=== PATIENT | female | born 1995 | race Two or more races ===

== ENCOUNTER 2018-01-25 00:15 | Emergency (ER) | payer MEDICAID ==
[~2018-01-25] VITALS: Ht 149.9 cm; Wt 46.7 kg
[2018-01-25 00:23] VITALS: BP 108/62
== END 2018-01-25 04:11 | disposition home or self-care (01) ==
LOC: ER 00:17
DX: O99.512 Diseases of the respiratory system complicating pregnancy, second trimester (principal); O26.892 Other specified pregnancy related conditions, second trimester; J30.9 Allergic rhinitis, unspecified; Z88.4 Allergy status to anesthetic agent; Z88.0 Allergy status to penicillin; Z3A.22 22 weeks gestation of pregnancy
CPT/HCPCS: 69209; 69210

== ENCOUNTER 2018-05-24 07:30 | Inpatient (IN) | payer MEDICAID ==
[~2018-05-24] VITALS: Ht 149.9 cm; Wt 54.0 kg
[2018-05-24] MEDS ORDERED: PREN-96 PO (13:28)
[2018-05-24] MEDS ORDERED: LACTATED RINGER'S 1,000 ML IV SCH (16:30)
[2018-05-24] MEDS ORDERED: METHYLERGONOVINE MALEATE 0.2 MG/ML AMP IM PRN (16:30)
[2018-05-24] MEDS ORDERED: LIDOCAINE 2% (LOCAL ANESTH.) PF 5ml SDV ID ONE (16:30)
[2018-05-24] MEDS ORDERED: LACT. RINGERS/OXYTOCIN 20UNITS 1,000 ML IV SCH (16:30)
[2018-05-24] MEDS ORDERED: WITCH HAZEL-GLYCERIN PAD TOP PRN (16:30)
[2018-05-24] MEDS ORDERED: DERMOPLAST 60ML BOTTLE TOP PRN (16:30)
[2018-05-24] MEDS ORDERED: PHISODERM TOP SOLN 240ML BTL TOP PRN (16:30)
[2018-05-24] MEDS ORDERED: NALBUPHINE HCL 10 MG/1ml INJECTION IV PRN (16:30)
[2018-05-24 17:32] LABS: Basophils # (auto) 0 uL; Basophils % (auto) 0.2 % (0.0-2.0); Eosinophils # (auto) 0 uL; Eosinophils % (auto) 0.3 % (0.0-7.0); Hematocrit 43.4 % (36.0-46.0); Hemoglobin 14.6 g/dL (12.2-16.2); Lymphocytes # (auto) 1.3 uL; Lymphocytes % (auto) 14.4 % (10.0-50.0); Mean Corpuscular Hemoglobin 29.9 pg (28.0-32.0); Mean Corpuscular Hgb Conc. 33.7 g/dL (32.0-36.0); Mean Corpuscular Volume 88.9 fL (80.0-100.0); Monocytes # (auto) 0.6 uL; Monocytes % (auto) 6.9 % (0.0-12.0); Neutrophils # (auto) 6.9 uL; Neutrophils % (auto) 78.2 % (37.0-80.0); Nucleated Red Blood Cells % 0.1 %; Platelet Count (auto) 137 10^3/uL (140-450); Red Blood Cells 4.89 10^6/uL (4.0-5.20); Red Cell Distribution Width 14.3 % (11.8-14.3); White Blood Cell 8.9 10^3/uL (4.4-10.8)
[2018-05-24 17:42] LABS: BUN/Creatinine Ratio 7.4; Calcium 8.6 mg/dL (8.5-10.1); Potassium 3.5 mmol/L (3.5-5.1)
[2018-05-24 17:47] LABS: INR 0.87 (0.9-1.15); Partial Thromboplastin Time 29.2 sec (23.78-33.04); Prothrombin Time 9.4 sec (9.27-12.13)
[2018-05-24 17:54] LABS: Bilirubin, Total 0.4 mg/dL (0.2-1.0); Total Protein 7.7 g/dL (6.4-8.2)
[2018-05-24 18:19] LABS: Urine Bacteria FEW /hpf (None Seen); Urine Blood TRACE /uL (Negative); Urine Specific Gravity 1.006 (1.001-1.035); Urine WBC 2 /hpf (0 - 5)
[2018-05-24] MEDS: CLINDAMYCIN 900MG IV 50 ML IV SCH (18:43)
[2018-05-24] MEDS ORDERED: fentaNYL W ROPIVACAINE 150 ML EPI SCH (21:45)
[2018-05-24] MEDS ORDERED: LIDOCAINE HCL 2 %PF INJ 10ML AMP IJ ONE (21:45)
[2018-05-24] MEDS ORDERED: ePHEDrine SULFATE 50 MG/ML AMP IV ONE (21:45)
[2018-05-24] MEDS ORDERED: fentaNYL CITRATE 100 MCG/2 ML VL IV ONE (21:45)
[2018-05-24] MEDS ORDERED: NALOXONE HCL 0.4 MG/ML VIAL IV ONE (21:45)
[2018-05-24 23:50] LABS: Alcohol, Urine < 3.0 mg/dL (0-5); Amphetamine Screen, Urine NEGATIVE (NEGATIVE); Barbiturate Scree,Urine NEGATIVE (NEGATIVE); Benzodiazephine Screen, Urine NEGATIVE (NEGATIVE); Cannabinoid Screen, Urine NEGATIVE (NEGATIVE); Cocaine Screen, Urine NEGATIVE (NEGATIVE); Opiate Scree,Urine NEGATIVE (NEGATIVE); Phencyclidine Screen, Urine NEGATIVE (NEGATIVE)
[2018-05-25] MEDS: CLINDAMYCIN 900MG IV 50 ML IV SCH ×3 (03:03→19:02)
[2018-05-25] MEDS ORDERED: ONDANSETRON HCL 4 MG/2 ML VIAL ONE (06:58)
[2018-05-25] MEDS ORDERED: ONDANSETRON HCL 4 MG/2 ML VIAL IV PRN (07:00)
[2018-05-25] MEDS: ACETAMINOPHEN 325 MG TAB PO PRN ×3 (09:41→19:01)
[2018-05-25] MEDS ORDERED: LIDOCAINE HCL 2 %PF INJ 10ML AMP IJ ONE (10:06)
[2018-05-25 18:39] VITALS: BP 110/76
[2018-05-25] MEDS: DOCUSATE CALCIUM 240 MG CAP PO SCH (19:01)
[2018-05-26 03:00] VITALS: BP 100/65
[2018-05-26] MEDS: ACETAMINOPHEN 325 MG TAB PO PRN ×4 (03:10→23:11)
[2018-05-26 04:06] LABS: RPR Non Reactive (Non Reactive)
[2018-05-26 07:00] VITALS: BP 94/50
[2018-05-26] MEDS: DOCUSATE CALCIUM 240 MG CAP PO SCH (10:12)
[2018-05-26 11:00] VITALS: BP 95/53
[2018-05-26 15:00] VITALS: BP 99/54
[2018-05-26 19:00] VITALS: BP 101/65
[2018-05-26 23:00] VITALS: BP 107/72
[2018-05-27 03:00] VITALS: BP 115/72
[2018-05-27] MEDS: ACETAMINOPHEN 325 MG TAB PO PRN (06:44)
[2018-05-27 07:01] VITALS: BP 112/51
== END 2018-05-27 10:45 | disposition home or self-care (01) | DRG 560 ==
LOC: OBSVTOIN 07:30 → LDRP 07:30
PROVIDERS: ADMIT Obstetrics & Gynecology; ATTEND Obstetrics & Gynecology
PROC: 10E0XZZ Delivery of Products of Conception, External Approach (ICD-10-PCS; principal; 2018-05-25)
PROC: 0KQM0ZZ Repair Perineum Muscle, Open Approach (ICD-10-PCS; 2018-05-25)
PROC: 3E0E7GC Introduction of Other Therapeutic Substance into Products of Conception, Via Natural or Artificial Opening (ICD-10-PCS; 2018-05-25)
PROC: 0W8NXZZ Division of Female Perineum, External Approach (ICD-10-PCS; 2018-05-25)
PROC: 10907ZC Drainage of Amniotic Fluid, Therapeutic from Products of Conception, Via Natural or Artificial Opening (ICD-10-PCS; 2018-05-25)
PROC: 3E0R3BZ Introduction of Anesthetic Agent into Spinal Canal, Percutaneous Approach (ICD-10-PCS; 2018-05-25)
PROC: 00HU33Z Insertion of Infusion Device into Spinal Canal, Percutaneous Approach (ICD-10-PCS; 2018-05-25)
DX: O76 Abnormality in fetal heart rate and rhythm complicating labor and delivery (principal); O70.1 Second degree perineal laceration during delivery; Z37.0 Single live birth; Z3A.39 39 weeks gestation of pregnancy; O99.824 Streptococcus B carrier state complicating childbirth; O77.0 Labor and delivery complicated by meconium in amniotic fluid; Z88.0 Allergy status to penicillin; Z88.8 Allergy status to other drugs, medicaments and biological substances
CPT/HCPCS: 36415; 51702; 59025; 62282; 76818; 80053; 80307; 81001; 81002; 85025; 85610; 85730; 86592; 86850; 86900; 86901; 94762; 96361; 96366; 96372; A6257; J2001; J2405; J2590; J3010; J3490

== ENCOUNTER 2020-10-14 13:40 | Emergency (ER) | payer MEDICAID ==
[~2020-10-14] VITALS: Ht 149.9 cm; Wt 52.2 kg
[~2020-10-14 13:40] MED LIST: PREN-96 PO
[2020-10-14] MEDS: EPINEPHrine HCL 1 MG/1 ML AMP SC ONE (15:00)
[2020-10-14] MEDS: methylPREDNISolone SOD SUCC 125 MG/2 ML VL IM ONE (15:00)
[2020-10-14 15:39] VITALS: BP 131/60
== END 2020-10-14 15:49 | disposition home or self-care (01) ==
LOC: ER 13:40
DX: T78.40XA Allergy, unspecified, initial encounter (principal); Z88.0 Allergy status to penicillin; Z88.6 Allergy status to analgesic agent; X58.XXXA Exposure to other specified factors, initial encounter
CPT/HCPCS: 96372; 99284; J0171; J2930